=== PATIENT | male | born 1955 | race Caucasian/White ===

== ENCOUNTER → 2016-09-29 | Outpatient (CLI) | payer OTHER ==
--- NOTE | 2016-09-29 16:49 | KCIC ---
MRI of the left knee HISTORY: Left knee pain medially. Pain since going on a walker May 2. Acute pain and swelling. TECHNIQUE: Routine multiplanar sequences are obtained. FINDINGS: Degenerative tear of the medial meniscus involving the posterior root attachment. Extrusion of medial meniscus from the joint. Mild blunting of the free margin of the body of the lateral meniscus. Compatible with a small tear. Anterior and posterior cruciate ligaments are intact. Mild medial collateral ligament sprain. Iliotibial band are unremarkable. Fibular collateral ligament, popliteus and biceps femoris tendons are intact. Extensor mechanism is intact. Small joint effusion. 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 Subchondral marrow edema at the medial tibial plateau. Milder subchondral edema at the medial femoral condyle. Small Luke's cyst. There is some heterogeneous nodular signal within the Luke's cyst, most likely a loose body measuring 12 mm. Alternatively, this could represent some nodular scarring or synovitis, or blood product. Severe chondromalacia at the posterior weightbearing lateral femoral condyle. No evidence of acute fracture or aggressive bone destruction. There is subcutaneous edema around the knee, greatest anteromedially. IMPRESSION: 1. Medial meniscal tear. 2. Small lateral meniscal tear. 3. Primary osteoarthritis, particularly at the medial joint compartment. 4. Subchondral marrow edema at the medial tibial plateau could be reactive. However, marrow contusion, or stress reaction from repetitive microtrauma, are also possible. 5. Medial collateral ligament sprain. 6. Luke's cyst, with a probable internal loose body. Electronically signed by: Prakash Smith MD (09/29/2016 4:47 PM)
== END | disposition home or self-care (01) ==
LOC: KCIC MRI 15:12
PROVIDERS: ATTEND Nurse Practitioner Family
DX: M17.12 Unilateral primary osteoarthritis, left knee (principal); M71.22 Synovial cyst of popliteal space [Baker], left knee; R60.0 Localized edema
CPT/HCPCS: 73721